=== PATIENT | female | born 1955 | race Caucasian/White ===

== ENCOUNTER 2022-05-19 19:18 | Inpatient (IN) | payer MEDICARE ==
[~2022-05-19] VITALS: Ht 167.6 cm; Wt 66.7 kg
[2022-05-19] MEDS ORDERED: ACETAMINOPHEN 325MG TABLET PO STA (20:05)
[2022-05-19] MEDS ORDERED: SODIUM CHLORIDE 0.9% 1000ML BAG (SEPSIS BOLUS) IV ONE (20:15)
[2022-05-19 21:15] LABS: BASOPHILS % 0.3 % (0.0-2.0); HEMATOCRIT. 35.8 % (36.0-48.0); HEMOGLOBIN. 11.9 g/dL (12.0-16.0); LYMPHOCYTES % 13.8 % (20.0-50.0); MEAN CORPUSCULAR HEMOGLOBIN 29.3 pg (28.0-32.0); MEAN CORPUSCULAR VOLUME 88.2 fL (81.0-99.0); MEAN PLATELET VOLUME 8.5 fl (7.4-10.4); MONOCYTES % 8.1 % (2.0-8.0); NEUTROPHILS % 77.8 % (40.0-76.0); PLATELET 219 x1000/uL (130-400); RED BLOOD CELL COUNT 4.06 mill/uL (4.2-5.4); RED CELL DISTRIBUTION WIDTH 15.2 % (11.6-14.6)
[2022-05-19 21:23] LABS: INR 1.1; PROTHROMBIN TIME 11.6 sec (9.6-11.0)
[2022-05-19 21:25] LABS: CHLORIDE 101 mEq/L (98-107)
[2022-05-19 23:30] LABS: CLARITY URINE CLOUDY (CLEAR); COLOR URINE YELLOW (YELLOW); KETONES URINE NEGATIVE (NEGATIVE); LEUKOCYTE ESTERASE URINE 3+ (NEGATIVE); NITRITE URINE POSITIVE (NEGATIVE); OCCULT BLOOD URINE 3+ (NEGATIVE); PH URINE 6.5 (4.5-8.0); PROTEIN URINE 1+ (NEGATIVE); SPECIFIC GRAVITY URINE 1.011 (1.005-1.030); UROBILINOGEN URINE 0.2 E.U./dL (0.2-1.0)
[2022-05-19] MEDS ORDERED: VANCOMYCIN 1G PREMIX 200 ML IV SCH (23:30)
[2022-05-19] MEDS ORDERED: CEFTRIAXONE 1 G PREMIX 50 ML IV ONE (23:30)
[2022-05-20] MEDS ORDERED: IBUPROFEN 400MG TABLET PO ONE
[2022-05-20] MEDS ORDERED: DEXTROSE 50% WATER 50ML SYRINGE IV PRN (05:45)
[2022-05-20] MEDS: BLOOD SUGAR DIAGNOSTIC STRIP TEST SCH ×4 (06:35→20:59)
[2022-05-20] MEDS: INSULIN LISPRO 100 UNITS/ML SUBCUT SCH ×4 (06:35→20:59)
[2022-05-20 10:30] VITALS: BP 94/52
[2022-05-20] MEDS ORDERED: METF750T46 PO (10:56)
[2022-05-20] MEDS ORDERED: ATOR40TA70 PO (10:56)
[2022-05-20] MEDS ORDERED: CLOZ100T31 PO (10:56)
[2022-05-20] MEDS ORDERED: GLIP2.5T3 PO (10:56)
[2022-05-20] MEDS ORDERED: TRAZ-251 PO (10:56)
[2022-05-20] MEDS ORDERED: DILT120C11 PO (10:56)
[2022-05-20] MEDS ORDERED: VENL225T3 PO (10:56)
[2022-05-20] MEDS ORDERED: DULA1.5P SQ (10:56)
[2022-05-20 11:00] VITALS: BP 94/52
[2022-05-20 12:00] VITALS: BP_SYST 149; BP_SYST 156; BP_SYST 163; BP_DIAS 67; BP_DIAS 84; BP_DIAS 87
[2022-05-20] MEDS ORDERED: MECLIZINE 12.5MG TABLET PO PRN (12:30)
[2022-05-20] MEDS ORDERED: KETOROLAC 10MG TABLET PO PRN (12:30)
[2022-05-20] MEDS: SODIUM CHLORIDE 0.9% 1,000 ML IV SCH ×2 (13:00→23:00)
[2022-05-20] MEDS: ACETAMINOPHEN 325MG TABLET PO PRN ×2 (13:48→20:58)
[2022-05-20] MEDS ORDERED: VENLAFAXINE HCL 225 MG PO SCH (14:15)
[2022-05-20] MEDS ORDERED: DILTIAZEM HCL 120 MG PO SCH (14:15)
[2022-05-20] MEDS ORDERED: HYDRALAZINE 20MG/ML VIAL IV PRN (14:30)
[2022-05-20] MEDS: ENOXAPARIN 40MG/0.4ML SYR SUBCUT SCH (15:30)
[2022-05-20] MEDS: ATORVASTATIN CALCIUM 40MG TABLET PO SCH (15:30)
[2022-05-20] MEDS ORDERED: DILTIAZEM HCL 120MG TABLET PO SCH (15:50)
[2022-05-20 16:00] VITALS: BP 122/61
[2022-05-20] MEDS ORDERED: DILTIAZEM HCL 120MG CAPSULE CD 24HR PO NR (16:10)
[2022-05-20] MEDS: VENLAFAXINE HCL 37.5MG SR CAPSULE 24HR PO SCH (16:16)
[2022-05-20 17:34] LABS: HEMATOCRIT 31.4 % (36.0-48.0); HEMOGLOBIN 10.3 g/dL (12.0-16.0); MEAN CORPUSCULAR VOLUME 88.4 fL (81.0-99.0); PLATELET 165 x1000/uL (130-400); RED BLOOD CELL COUNT 3.55 mill/uL (4.2-5.4); RED CELL DISTRIBUTION WIDTH 14.9 % (11.6-14.6)
[2022-05-20 18:28] LABS: CHLORIDE 108 mEq/L (98-107)
[2022-05-20] MEDS ORDERED: *PATIENT'S OWN MEDICATION STORAGE XX SCH (19:00)
[2022-05-20 20:00] VITALS: BP 142/74
[2022-05-20] MEDS: FAMOTIDINE 20MG TABLET PO SCH (20:37)
[2022-05-20] MEDS: CLOZAPINE 100MG TABLET PO SCH (20:37)
[2022-05-20] MEDS ORDERED: CEFTRIAXONE 1,000 MG in DEXTROSE 5% WATER 50 ML IV SCH (21:00)
[2022-05-20] MEDS ORDERED: TRAZODONE HCL 50MG TABLET PO SCH (21:00)
[2022-05-21] VITALS: BP_SYST 145; BP_SYST 154; BP_DIAS 80; BP_DIAS 82
[2022-05-21 04:00] VITALS: BP 150/84
[2022-05-21] MEDS: ACETAMINOPHEN 325MG TABLET PO PRN ×4 (04:13→22:46)
[2022-05-21] MEDS: BLOOD SUGAR DIAGNOSTIC STRIP TEST SCH ×4 (06:34→21:17)
[2022-05-21] MEDS: INSULIN LISPRO 100 UNITS/ML SUBCUT SCH ×4 (06:34→21:00)
[2022-05-21 06:49] LABS: BASOPHILS % 0.3 % (0.0-2.0); EOSINOPHILS % 1.1 % (0.0-5.0); HEMATOCRIT. 30.3 % (36.0-48.0); HEMOGLOBIN. 10.2 g/dL (12.0-16.0); LYMPHOCYTES % 19.9 % (20.0-50.0); MEAN CORPUSCULAR HEMOGLOBIN 29.5 pg (28.0-32.0); MEAN PLATELET VOLUME 8.8 fl (7.4-10.4); MONOCYTES % 9.9 % (2.0-8.0); NEUTROPHILS % 68.8 % (40.0-76.0); PLATELET 174 x1000/uL (130-400); RED BLOOD CELL COUNT 3.44 mill/uL (4.2-5.4)
[2022-05-21] MEDS ORDERED: GLIPIZIDE XL 2.5MG TABLET PO SCH ×2 (07:10→08:00)
[2022-05-21 07:48] LABS: CHLORIDE 104 mEq/L (98-107)
[2022-05-21 08:03] LABS: HDL CHOLESTEROL 20 mg/dL (40-59); LDL CHOLESTEROL 68 mg/dL (5-100)
[2022-05-21 08:24] VITALS: BP 120/85
[2022-05-21] MEDS: ATORVASTATIN CALCIUM 40MG TABLET PO SCH (08:37)
[2022-05-21] MEDS: ENOXAPARIN 40MG/0.4ML SYR SUBCUT SCH (08:37)
[2022-05-21] MEDS: DILTIAZEM HCL 120MG CAPSULE CD 24HR PO SCH (08:38)
[2022-05-21] MEDS: VENLAFAXINE HCL 37.5MG SR CAPSULE 24HR PO SCH (08:39)
[2022-05-21] MEDS: SODIUM CHLORIDE 0.9% 1,000 ML IV SCH ×2 (08:40→19:00)
[2022-05-21] MEDS ORDERED: DILTIAZEM HCL 120MG CAPSULE CD 24HR PO SCH (09:00)
[2022-05-21] MEDS ORDERED: VENLAFAXINE HCL 37.5MG SR CAPSULE 24HR PO SCH (09:00)
[2022-05-21] MEDS: GLIPIZIDE XL 2.5MG TABLET PO SCH (09:30)
[2022-05-21 12:00] VITALS: BP 107/63
[2022-05-21] MEDS ORDERED: POTASSIUM CHLORIDE 20MEQ TABLET SR PO NR (13:45)
[2022-05-21] MEDS: MEROPENEM 1,000 MG in SODIUM CHLORIDE 0.9% 100 ML IV SCH ×2 (14:32→21:16)
[2022-05-21 20:00] VITALS: BP 162/83
[2022-05-21] MEDS: FAMOTIDINE 20MG TABLET PO SCH (21:11)
[2022-05-21] MEDS: CLOZAPINE 100MG TABLET PO SCH (21:12)
[2022-05-22] VITALS: BP 121/64
[2022-05-22 04:00] VITALS: BP_SYST 123; BP_SYST 140; BP_SYST 150; BP_DIAS 70; BP_DIAS 80; BP_DIAS 81
[2022-05-22] MEDS: SODIUM CHLORIDE 0.9% 1,000 ML IV SCH ×2 (05:16→16:59)
[2022-05-22] MEDS: MEROPENEM 1,000 MG in SODIUM CHLORIDE 0.9% 100 ML IV SCH ×3 (05:16→22:00)
[2022-05-22] MEDS: GLIPIZIDE XL 2.5MG TABLET PO SCH (06:13)
[2022-05-22] MEDS: ACETAMINOPHEN 325MG TABLET PO PRN ×2 (06:13→16:59)
[2022-05-22 06:38] LABS: HEMATOCRIT 33.9 % (36.0-48.0); HEMOGLOBIN 10.6 g/dL (12.0-16.0); MEAN CORPUSCULAR HEMOGLOBIN 28.9 pg (28.0-32.0); MEAN CORPUSCULAR VOLUME 92.3 fL (81.0-99.0); PLATELET 178 x1000/uL (130-400); RED BLOOD CELL COUNT 3.67 mill/uL (4.2-5.4); RED CELL DISTRIBUTION WIDTH 15.2 % (11.6-14.6)
[2022-05-22] MEDS: BLOOD SUGAR DIAGNOSTIC STRIP TEST SCH ×4 (06:45→21:00)
[2022-05-22] MEDS: INSULIN LISPRO 100 UNITS/ML SUBCUT SCH ×4 (06:45→21:00)
[2022-05-22 06:51] LABS: CHLORIDE 105 mEq/L (98-107)
[2022-05-22 06:57] LABS: PHOSPHORUS 3.3 mg/dL (2.5-4.9)
[2022-05-22 07:58] VITALS: BP 142/72
[2022-05-22] MEDS: ENOXAPARIN 40MG/0.4ML SYR SUBCUT SCH (08:19)
[2022-05-22] MEDS: VENLAFAXINE HCL 37.5MG SR CAPSULE 24HR PO SCH (08:19)
[2022-05-22] MEDS: ATORVASTATIN CALCIUM 40MG TABLET PO SCH (08:19)
[2022-05-22] MEDS: DILTIAZEM HCL 120MG CAPSULE CD 24HR PO SCH (08:21)
[2022-05-22 11:28] VITALS: BP_SYST 135; BP_SYST 140; BP_DIAS 64; BP_DIAS 72
[2022-05-22 16:40] VITALS: BP 147/87
[2022-05-22] MEDS: DOCUSATE SODIUM 250MG CAPSULE PO PRN (16:59)
[2022-05-22 20:00] VITALS: BP 159/68
[2022-05-22] MEDS: CLOZAPINE 100MG TABLET PO SCH (21:00)
[2022-05-22] MEDS: FAMOTIDINE 20MG TABLET PO SCH (21:00)
[2022-05-23] VITALS: BP 137/73
[2022-05-23 04:00] VITALS: BP 132/77
[2022-05-23] MEDS: MEROPENEM 1,000 MG in SODIUM CHLORIDE 0.9% 100 ML IV SCH ×3 (05:19→22:09)
[2022-05-23] MEDS: DOCUSATE SODIUM 250MG CAPSULE PO PRN ×3 (05:19→08:56)
[2022-05-23] MEDS: SODIUM CHLORIDE 0.9% 1,000 ML IV SCH ×3 (05:20→21:03)
[2022-05-23] MEDS: GLIPIZIDE XL 2.5MG TABLET PO SCH (06:22)
[2022-05-23] MEDS: INSULIN LISPRO 100 UNITS/ML SUBCUT SCH ×4 (06:25→21:00)
[2022-05-23] MEDS: BLOOD SUGAR DIAGNOSTIC STRIP TEST SCH ×4 (06:25→21:04)
[2022-05-23 07:19] LABS: CHLORIDE 104 mEq/L (98-107)
[2022-05-23 07:24] LABS: HEMATOCRIT 32.3 % (36.0-48.0); HEMOGLOBIN 10.9 g/dL (12.0-16.0); MEAN CORPUSCULAR HEMOGLOBIN 29.2 pg (28.0-32.0); MEAN CORPUSCULAR VOLUME 86.4 fL (81.0-99.0); PLATELET 208 x1000/uL (130-400); RED BLOOD CELL COUNT 3.73 mill/uL (4.2-5.4); RED CELL DISTRIBUTION WIDTH 15.1 % (11.6-14.6)
[2022-05-23 07:39] LABS: PHOSPHORUS 3.8 mg/dL (2.5-4.9)
[2022-05-23 08:27] VITALS: BP 156/81
[2022-05-23] MEDS: ENOXAPARIN 40MG/0.4ML SYR SUBCUT SCH (08:55)
[2022-05-23] MEDS: VENLAFAXINE HCL 37.5MG SR CAPSULE 24HR PO SCH (08:55)
[2022-05-23] MEDS: ACETAMINOPHEN 325MG TABLET PO PRN ×2 (08:56→21:04)
[2022-05-23] MEDS: DILTIAZEM HCL 120MG CAPSULE CD 24HR PO SCH (08:56)
[2022-05-23] MEDS: ATORVASTATIN CALCIUM 40MG TABLET PO SCH (08:56)
[2022-05-23 11:41] VITALS: BP 150/80
[2022-05-23] MEDS ORDERED: NA PHOS,M-B/NA PHOS,DI-BA ENEMA 118ML PR NR (12:45)
[2022-05-23 16:00] VITALS: BP 152/88
[2022-05-23 20:00] VITALS: BP 149/89
[2022-05-23] MEDS: FAMOTIDINE 20MG TABLET PO SCH (21:04)
[2022-05-23] MEDS: CLOZAPINE 100MG TABLET PO SCH (21:04)
[2022-05-24] VITALS: BP 139/89
[2022-05-24 04:00] VITALS: BP 141/91
[2022-05-24] MEDS: MEROPENEM 1,000 MG in SODIUM CHLORIDE 0.9% 100 ML IV SCH ×3 (06:36→21:12)
[2022-05-24] MEDS: BLOOD SUGAR DIAGNOSTIC STRIP TEST SCH ×4 (06:36→20:33)
[2022-05-24] MEDS: SODIUM CHLORIDE 0.9% 1,000 ML IV SCH ×2 (06:36→16:27)
[2022-05-24] MEDS: INSULIN LISPRO 100 UNITS/ML SUBCUT SCH ×4 (06:42→21:12)
[2022-05-24 07:58] VITALS: BP 180/99
[2022-05-24] MEDS: ENOXAPARIN 40MG/0.4ML SYR SUBCUT SCH (08:10)
[2022-05-24] MEDS: VENLAFAXINE HCL 37.5MG SR CAPSULE 24HR PO SCH (08:10)
[2022-05-24] MEDS: ATORVASTATIN CALCIUM 40MG TABLET PO SCH (08:11)
[2022-05-24] MEDS: DILTIAZEM HCL 120MG CAPSULE CD 24HR PO SCH (08:11)
[2022-05-24] MEDS: GLIPIZIDE XL 2.5MG TABLET PO SCH (08:11)
[2022-05-24 09:26] LABS: HEMATOCRIT 31.4 % (36.0-48.0); HEMOGLOBIN 10.7 g/dL (12.0-16.0); MEAN CORPUSCULAR HEMOGLOBIN 29.7 pg (28.0-32.0); MEAN CORPUSCULAR VOLUME 86.7 fL (81.0-99.0); PLATELET 251 x1000/uL (130-400); RED BLOOD CELL COUNT 3.62 mill/uL (4.2-5.4)
[2022-05-24 09:38] LABS: CHLORIDE 108 mEq/L (98-107)
[2022-05-24] MEDS: DOCUSATE SODIUM 250MG CAPSULE PO SCH (11:27)
[2022-05-24 11:32] VITALS: BP 155/78
[2022-05-24 15:34] VITALS: BP 131/72
[2022-05-24 20:00] VITALS: BP 156/90
[2022-05-24] MEDS: FAMOTIDINE 20MG TABLET PO SCH (21:07)
[2022-05-24] MEDS: CLOZAPINE 100MG TABLET PO SCH (21:08)
[2022-05-24] MEDS: MAGNESIUM HYDROXIDE 400MG/5ML 30ML UDC PO PRN (21:13)
[2022-05-24 22:02] LABS: BASOPHILS % 0.4 % (0.0-2.0); EOSINOPHILS % 5.1 % (0.0-5.0); HEMATOCRIT. 32.3 % (36.0-48.0); HEMOGLOBIN. 10.8 g/dL (12.0-16.0); LYMPHOCYTES % 31.7 % (20.0-50.0); MEAN CORPUSCULAR HEMOGLOBIN 29.2 pg (28.0-32.0); MEAN PLATELET VOLUME 8.5 fl (7.4-10.4); MONOCYTES % 12.7 % (2.0-8.0); NEUTROPHILS % 50.1 % (40.0-76.0); PLATELET 300 x1000/uL (130-400); RED BLOOD CELL COUNT 3.71 mill/uL (4.2-5.4); RED CELL DISTRIBUTION WIDTH 14.9 % (11.6-14.6)
[2022-05-25] VITALS: BP 102/46
[2022-05-25] MEDS: SODIUM CHLORIDE 0.9% 1,000 ML IV SCH ×3 (03:07→22:54)
[2022-05-25 03:49] VITALS: BP 132/63
[2022-05-25] MEDS: MEROPENEM 1,000 MG in SODIUM CHLORIDE 0.9% 100 ML IV SCH ×3 (05:39→21:23)
[2022-05-25] MEDS: BLOOD SUGAR DIAGNOSTIC STRIP TEST SCH ×4 (05:50→21:21)
[2022-05-25] MEDS: GLIPIZIDE XL 2.5MG TABLET PO SCH (06:14)
[2022-05-25] MEDS: INSULIN LISPRO 100 UNITS/ML SUBCUT SCH ×4 (06:15→21:24)
[2022-05-25 08:02] VITALS: BP 155/86
[2022-05-25] MEDS: ATORVASTATIN CALCIUM 40MG TABLET PO SCH (08:07)
[2022-05-25] MEDS: VENLAFAXINE HCL 37.5MG SR CAPSULE 24HR PO SCH (08:07)
[2022-05-25] MEDS: DOCUSATE SODIUM 250MG CAPSULE PO SCH (08:08)
[2022-05-25] MEDS: ENOXAPARIN 40MG/0.4ML SYR SUBCUT SCH (08:08)
[2022-05-25] MEDS: DILTIAZEM HCL 120MG CAPSULE CD 24HR PO SCH (08:08)
[2022-05-25 09:19] LABS: HEMATOCRIT 31.6 % (36.0-48.0); HEMOGLOBIN 10.7 g/dL (12.0-16.0); MEAN CORPUSCULAR HEMOGLOBIN 29.4 pg (28.0-32.0); MEAN CORPUSCULAR VOLUME 86.2 fL (81.0-99.0); PLATELET 346 x1000/uL (130-400); RED BLOOD CELL COUNT 3.66 mill/uL (4.2-5.4); RED CELL DISTRIBUTION WIDTH 14.8 % (11.6-14.6)
[2022-05-25 09:24] LABS: CHLORIDE 103 mEq/L (98-107)
[2022-05-25 11:39] VITALS: BP 144/82
[2022-05-25 16:00] VITALS: BP 109/65
[2022-05-25 20:00] VITALS: BP 141/89
[2022-05-25] MEDS: FAMOTIDINE 20MG TABLET PO SCH (20:31)
[2022-05-25] MEDS: CLOZAPINE 100MG TABLET PO SCH (20:32)
[2022-05-25] MEDS: MAGNESIUM HYDROXIDE 400MG/5ML 30ML UDC PO PRN (20:32)
[2022-05-26] VITALS: BP 129/81
[2022-05-26 04:00] VITALS: BP 130/75
[2022-05-26] MEDS: MEROPENEM 1,000 MG in SODIUM CHLORIDE 0.9% 100 ML IV SCH ×2 (05:19→14:30)
[2022-05-26 06:15] LABS: CHLORIDE 101 mEq/L (98-107)
[2022-05-26] MEDS: INSULIN LISPRO 100 UNITS/ML SUBCUT SCH ×2 (06:17→12:09)
[2022-05-26] MEDS: BLOOD SUGAR DIAGNOSTIC STRIP TEST SCH ×2 (06:17→12:09)
[2022-05-26] MEDS: GLIPIZIDE XL 2.5MG TABLET PO SCH (06:18)
[2022-05-26 06:25] LABS: BASOPHILS % 0.6 % (0.0-2.0); HEMATOCRIT. 31.4 % (36.0-48.0); HEMOGLOBIN. 10.6 g/dL (12.0-16.0); LYMPHOCYTES % 31.5 % (20.0-50.0); MEAN CORPUSCULAR HEMOGLOBIN 29.3 pg (28.0-32.0); MEAN CORPUSCULAR VOLUME 86.9 fL (81.0-99.0); MEAN PLATELET VOLUME 7.8 fl (7.4-10.4); MONOCYTES % 9.6 % (2.0-8.0); NEUTROPHILS % 53.3 % (40.0-76.0); PLATELET 377 x1000/uL (130-400); RED BLOOD CELL COUNT 3.61 mill/uL (4.2-5.4); RED CELL DISTRIBUTION WIDTH 14.7 % (11.6-14.6)
[2022-05-26 08:00] VITALS: BP 129/76
[2022-05-26] MEDS: DOCUSATE SODIUM 250MG CAPSULE PO SCH (09:50)
[2022-05-26] MEDS: ATORVASTATIN CALCIUM 40MG TABLET PO SCH (09:51)
[2022-05-26] MEDS: DILTIAZEM HCL 120MG CAPSULE CD 24HR PO SCH (09:51)
[2022-05-26] MEDS: VENLAFAXINE HCL 37.5MG SR CAPSULE 24HR PO SCH (09:51)
[2022-05-26] MEDS: ENOXAPARIN 40MG/0.4ML SYR SUBCUT SCH (09:52)
[2022-05-26 12:00] VITALS: BP 123/79
[2022-05-26] MEDS: SODIUM CHLORIDE 0.9% 1,000 ML IV SCH (14:33)
[2022-05-26 16:29] VITALS: BP 154/82
== END 2022-05-26 19:04 | DRG 871 ==
LOC: ER 19:18 → MICUSO 05-20 00:27 → EDBEDREQ 05-20 00:43 → EDBEDREQTM 05-20 00:43 → 8WST 05-20 09:38
PROVIDERS: ADMIT Hospitalist; ATTEND Hospitalist
PROC: 02HV33Z Insertion of Infusion Device into Superior Vena Cava, Percutaneous Approach (ICD-10-PCS; principal; 2022-05-25)
PROC: B548ZZA Ultrasonography of Superior Vena Cava, Guidance (ICD-10-PCS; 2022-05-25)
DX: A41.51 Sepsis due to Escherichia coli [E. coli] (principal); G93.41 Metabolic encephalopathy; N39.0 Urinary tract infection, site not specified; E87.1 Hypo-osmolality and hyponatremia; E87.2 Acidosis; E46 Unspecified protein-calorie malnutrition; Z16.12 Extended spectrum beta lactamase (ESBL) resistance; Z20.822 Contact with and (suspected) exposure to COVID-19; R65.20 Severe sepsis without septic shock; E11.9 Type 2 diabetes mellitus without complications; E86.0 Dehydration; J40 Bronchitis, not specified as acute or chronic; I10 Essential (primary) hypertension; E78.5 Hyperlipidemia, unspecified; D64.9 Anemia, unspecified; F32.A Depression, unspecified; Z85.3 Personal history of malignant neoplasm of breast; Z79.899 Other long term (current) drug therapy; Z68.23 Body mass index [BMI] 23.0-23.9, adult; Z79.84 Long term (current) use of oral hypoglycemic drugs
CPT/HCPCS: 36415; 36573; 71045; 80048; 80053; 80061; 81003; 82962; 83036; 83605; 83735; 83880; 84100; 84145; 84484; 85025; 85027; 87077; 87186; 87426; 93005; 93306; 97116; 97162; 97166; 99291; C1725; C1893; J0360; J0696; J1650; J1815; J2185; J3370; J7030; J7050; J7060; A4315